=== PATIENT | female | born 1955 | race Caucasian/White ===

== ENCOUNTER 2016-11-04 20:30 | Emergency (ER) | payer OTHER ==
[~2016-11-04] VITALS: Ht 177.8 cm; Wt 88.0 kg
[2016-11-04 22:00] VITALS: O2SAT 94
[2016-11-04] MEDS ORDERED: PROCHLORPERAZINE 5 MG/ML 2 ML VIAL IV STA (22:10)
[2016-11-04] MEDS ORDERED: KETOROLAC TROMETHAMINE 30 MG/ML VIAL IV STA (22:10)
[2016-11-04] MEDS ORDERED: SODIUM CHLORIDE 0.9% 1000ML 1,000 ML IV ONE (22:10)
[2016-11-04] MEDS ORDERED: DiphenhydrAMINE HCL 50 MG/ML VIAL IV STA (22:10)
[2016-11-04] MEDS ORDERED: CIPR1TAB10 PO (22:24)
[2016-11-04] MEDS ORDERED: PRMVC PV (22:24)
[2016-11-04] MEDS ORDERED: NYSCR30 EXT (22:24)
[2016-11-04] MEDS ORDERED: LISI-461 PO (22:24)
[2016-11-04] MEDS ORDERED: MELO7.5T5 PO (22:24)
[2016-11-04] MEDS ORDERED: PYRI100T4 PO (22:24)
[2016-11-04] MEDS ORDERED: ACET-1256 PO (22:24)
[2016-11-04] MEDS ORDERED: CYAN10005 PO (22:24)
[2016-11-04 22:32] LABS: HEMATOCRIT 40.2 % (37-47); MEAN CELL VOLUME 86.6 fL (80-100); MEAN CORPUSCULAR HEMOGLOBIN 28.2 pg (25-34); MEAN CORPUSCULAR HGB CONC 32.6 g/dl (32-36); MEAN PLATELET VOLUME 9.7 fL (7.4-10.4); PLATELET COUNT 122 K/uL (130-400); RED BLOOD COUNT 4.64 M/uL (4.2-5.4); WHITE BLOOD COUNT 4.96 K/uL (4.8-10.8)
[2016-11-04 22:33] LABS: URINE APPEARANCE CLEAR (CLEAR); URINE COLOR DK YELLOW; URINE EPITHELIAL CELL AUTO >30 /lpf (0-5); URINE NITRITE NEG (NEG); URINE PH 5.5 (4.5-7.5); URINE SPECIFIC GRAVITY 1.019 (1.000-1.030); UROBILINOGEN POS (NEG); ZZUR CULT IF INDIC CLEAN CATCH NO
[2016-11-04 22:33] LABS: ALT/SGPT 60 U/L (12-78); BLOOD UREA NITROGEN 12 mg/dl (7-18); BUN/CREATININE RATIO 12.2 (10-20); CARBON DIOXIDE 24 mmol/L (21-32); CHLORIDE 105 mmol/L (98-107); CREATININE 0.95 mg/dl (0.60-1.20); GLUCOSE 104 mg/dl (70-99); POTASSIUM 3.3 mmol/L (3.5-5.1); SODIUM 139 mmol/L (136-145)
[2016-11-04 22:34] LABS: MANUAL MICROSCOPIC REQUIRED? NO; REVIEW REQ? NO
[2016-11-04 22:34] LABS: INR 1.1 (0.9-1.1); PARTIAL THROMBOPLASTIN RATIO 1.1; PROTHROMBIN TIME (PATIENT) 11.8 SECONDS (9.0-12.0)
[2016-11-04 22:35] LABS: URINE BILIRUBIN NEG (NEG)
[2016-11-04 22:36] LABS: ALB/GLOB RATIO 0.7 (0.9-2); ALKALINE PHOSPHATASE 150 U/L (45-117); AST/SGOT 60 U/L (15-37)
[2016-11-04 22:38] LABS: CALCIUM 8.2 mg/dl (8.5-10.1)
--- NOTE | 2016-11-04 22:50 | DIAGNOSTIC IMAGING REPORT ---
CHEST ONE VIEW PORTABLE HISTORY: Sepsis COMPARISON: None. FINDINGS: Linear densities at the left lung base favor scarring or atelectasis. The lungs are otherwise clear. The heart is top normal in size. No pleural effusions. No pneumothorax. IMPRESSION: No acute process. Electronically signed by: Triston Burroughs M.D. 11/04/2016 10:49 PM Dictated Date/Time: 11/04/2016 10:47 PM
--- NOTE | 2016-11-04 22:51 | DIAGNOSTIC IMAGING REPORT ---
LEFT FOOT 3 VIEWS HISTORY: Pt c/o left foot pain COMPARISON: None. FINDINGS: There is no fracture or dislocation. Soft tissues are unremarkable. No radiopaque foreign bodies. Plantar and posterior calcaneal spurs. IMPRESSION: No fractures. Electronically signed by: Triston Burroughs M.D. 11/04/2016 10:50 PM Dictated Date/Time: 11/04/2016 10:49 PM
[2016-11-04 22:54] LABS: BASO % 0.4 %; BASO ABS # 0.02 K/uL (0-0.2); COMPLETE YES; EOS % 0.2 %; IG% 0.2 %; LYMPH % 9.3 %; LYMPH ABS # 0.46 K/uL (1.2-3.4); NEUT % 83.9 %
[2016-11-04 23:00] VITALS: Ht 177.8 cm; Wt 88.0 kg
[2016-11-04 23:18] LABS: LYME DISEASE AB IGG NEG (NEG); LYME DISEASE AB IGM NEG (NEG)
--- NOTE | 2016-11-04 23:50 | EMERGENCY ROOM VISIT NOTE ---
History Report prepared by Jose: Phuong Garner Under the Supervision of: Dr. Nahid Dos Santos M.D. First contact with patient: 21:51 Chief Complaint: CHEST PAIN Stated Complaint: HEADACHE, DIZZY, FEVER, WEAK, CHEST PAINS Nursing Triage Summary: Patient was seen Thursday at [facility], was placed on abx for UTI. Patient family member states that she is not getting any better, she can't sleep at night. Patient has had a head since thursday non stop per patient. Patient also notes dizziness, fever, weakness and chest pain. Patient chest pain started thursday. Patient vomited bile at home earlier today. Notes nausea at this point. Patient had advil at 1300 today. History of Present Illness The patient is a 60 year old female who presents to the Emergency Room with complaints of a worsening illness for the past 4 days. [id number] states that the patient started complaining of a headache 4 days ago. The next day she was feeling worse. She was complaining of a fever, chills, nausea, weakness, and central chest pain. The patient went to the [facility] ER 2 days ago. She was diagnosed with a UTI and prescribed Cipro. They did not schedule any follow- up for the patient's chest pain. The patient states that she feels like the antibiotic is not helping. She is still experiencing a "pounding" headache, fevers, chills, weakness, nausea, vomiting, and chest pain. The patient notes that her headache is the "worst headache of my life." Her chest pain is not worsened with eating or exertion. It is not worsened with taking a deep breath. She has never seen a hearing aid assembly supervisor or had a stress test before. The patient has been taking ibuprofen for her pain. She rates her current pain as an 8/10 in severity. She denies neck pain, rash, and any recent tick bites. She does have a lot of animals at home. Source of History: patient, family ([id number]) Onset: 4 days ago Position: other (global) Symptom Intensity: 8/10 Quality: other (illness) Timing: worsening Modifying Factors (Relieving): ibuprofen Associated Symptoms: + fevers, + chills, + headache, + chest pain, + nausea , + vomiting, + weakness, No neck pain, No rash Review of Systems See HPI for pertinent positives & negatives. A total of 10 systems reviewed and were otherwise negative. Past Medical & Surgical Medical Problems: (1) Hypertension Family History Diabetes mellitus Social History Smoking Status: Never Smoker Current/Historical Medications Scheduled Ciprofloxacin Hcl (Cipro), 500 MG PO BID Cyanocobalamin (Vitamin B-12), 1,000 MCG PO DAILY Estrogens, Conjugated (Premarin), 1 DOSE PV 3XWK Lisinopril (Zestril), 10 MG PO DAILY Meloxicam (Mobic), 7.5 MG PO DAILY Nystatin (Nystatin Cream), 0 EXT UD Pyridoxine (Vitamin B6), 100 MG PO DAILY Scheduled PRN Acetaminophen (Tylenol), 500 MG PO Q4 PRN for Pain Allergies Coded Allergies: No Known Allergies (Unverified , 11/04/16) Physical Exam Vital Signs Date Time Temp Pulse Resp B/P (MAP) Pulse Ox O2 Delivery O2 Flow Rate FiO2 11/05/16 01:51 37.6 68 14 136/79 93 11/05/16 01:08 68 11/05/16 01:06 70 14 93 11/05/16 01:00 136/79 11/05/16 00:36 79 14 96 11/05/16 00:31 133/79 11/04/16 23:06 92 21 96 11/04/16 23:01 89 22 177/104 95 Room Air 11/04/16 22:31 82 20 94 11/04/16 22:00 94 Room Air 11/04/16 22:00 37.6 78 18 166/95 95 Room Air 11/04/16 21:57 78 11/04/16 21:17 98 Room Air 11/04/16 20:37 38.4 80 18 160/83 95 Room Air Physical Exam GENERAL: Patient is a healthy-appearing well-nourished female. HEAD: Normocephalic atraumatic, no evidence of meningitis or encephalitis on exam. EYES: Ocular movements intact pupils equal and react to light OROPHARYNX mucous membranes are moist no exudates present no erythema or edema present NECK: Supple no nuchal rigidity CHEST: Good equal expansion LUNGS: Clear and equal to auscultation CARDIAC: Normal S1 and S2 ABDOMEN: Soft nontender no guarding BACK: No CVA tenderness EXTREMITIES: No pain upon palpation normal muscle strength in all groups no clubbing cyanosis or edema NEURO: Patient is following commands and answering questions appropriately. Alert and oriented x3 Cranial Nerves 2-12 grossly intact Medical Decision & Procedures ER Provider Diagnostic Interpretation: LEFT FOOT 3 VIEWS HISTORY: Pt c/o left foot pain COMPARISON: None. FINDINGS: There is no fracture or dislocation. Soft tissues are unremarkable. No radiopaque foreign bodies. Plantar and posterior calcaneal spurs. IMPRESSION: No fractures. Electronically signed by: Triston Burroughs M.D. 11/04/2016 10:50 PM Dictated Date/Time: 11/04/2016 10:[address]AST CT DOSE: 537.48 mGy.cm HISTORY: Headache. Mental status change. Pt c/o headache TECHNIQUE: Multiaxial CT images of the head were performed without the use of intravenous contrast. Comparison: None. Findings: The paranasal sinuses and mastoid air cells are clear. The calvarium and skull base are intact. The ventricles and sulci are within normal limits. There is no mass, hematoma, midline shift, or acute infarct. Impression: No acute intracranial abnormality. Electronically signed by: Nigel Escobar M.D. 11/05/2016 7:10 AM Dictated Date/Time: 11/05/2016 7:09 AM Laboratory Results 11/04/16 22:00 Red Blood Count 4.64, Mean Corpuscular Volume 86.6, Mean Corpuscular Hemoglobin 28.2, Mean Corpuscular Hemoglobin Concent 32.6, Mean Platelet Volume 9.7, Neutrophils (%) (Auto) 83.9, Lymphocytes (%) (Auto) 9.3, Monocytes (%) (Auto) 6.0, Eosinophils (%) (Auto) 0.2, Basophils (%) (Auto) 0.4, Neutrophils # (Auto) 4.16, Lymphocytes # (Auto) 0.46, Monocytes # (Auto) 0.30, Eosinophils # (Auto) 0.01, Basophils # (Auto) 0.02 11/04/16 22:00 Test 11/04/16 21:55 11/04/16 22:00 11/04/16 22:03 11/05/16 00:25 Urine Color DK YELLOW Urine Appearance CLEAR (CLEAR) Urine pH 5.5 (4.5-7.5) Urine Specific Umpire 1.019 (1.000-1.030) Urine Protein 2+ (NEG) Urine Glucose (UA) NEG (NEG) Urine Ketones 3+ (NEG) Urine Occult Blood 1+ (NEG) Urine Nitrite NEG (NEG) Urine Bilirubin NEG (NEG) Urine Urobilinogen POS (NEG) Urine Leukocyte Esterase NEG (NEG) Urine WBC (Auto) 1-5 /hpf (0-5) Urine RBC (Auto) 0-4 /hpf (0-4) Urine Hyaline Casts (Auto) 1-5 /lpf (0-5) Urine Epithelial Cells (Auto) >30 /lpf (0-5) Urine Bacteria (Auto) NEG (NEG) White Blood Count 4.96 K/uL (4.8-10.8) Red Blood Count 4.64 M/uL (4.2-5.4) Hemoglobin 13.1 g/dL (12.0-16.0) Hematocrit 40.2 % (37-47) Mean Corpuscular Volume 86.6 fL (80-100) Mean Corpuscular Hemoglobin 28.2 pg (25-34) Mean Corpuscular Hemoglobin Concent 32.6 g/dl (32-36) Platelet Count 122 K/uL (130-400) Mean Platelet Volume 9.7 fL (7.4-10.4) Neutrophils (%) (Auto) 83.9 % Lymphocytes (%) (Auto) 9.3 % Monocytes (%) (Auto) 6.0 % Eosinophils (%) (Auto) 0.2 % Basophils (%) (Auto) 0.4 % Neutrophils # (Auto) 4.16 K/uL (1.4-6.5) Lymphocytes # (Auto) 0.46 K/uL (1.2-3.4) Monocytes # (Auto) 0.30 K/uL (0.11-0.59) Eosinophils # (Auto) 0.01 K/uL (0-0.5) Basophils # (Auto) 0.02 K/uL (0-0.2) RDW Standard Deviation 45.6 fL (36.4-46.3) RDW Coefficient of Variation 14.5 % (11.5-14.5) Immature Granulocyte % (Auto) 0.2 % Immature Granulocyte # (Auto) 0.01 K/uL (0.00-0.02) Echinocytes 1+ Prothrombin Time 11.8 SECONDS (9.0-12.0) Prothromb Time International Ratio 1.1 (0.9-1.1) Activated Partial Thromboplast Time 29.0 SECONDS (21.0-31.0) Partial Thromboplastin Ratio 1.1 Anion Gap 10.0 mmol/L (3-11) Est Creatinine Clear Calc Drug Dose 77.7 ml/min Estimated GFR () 76.5 Estimated GFR (Non- 66.0 BUN/Creatinine Ratio 12.2 (10-20) Calcium Level 8.2 mg/dl (8.5-10.1) Total Bilirubin 1.2 mg/dl (0.2-1) Aspartate Amino Transf (AST/SGOT) 60 U/L (15-37) Alanine Aminotransferase (ALT/SGPT) 60 U/L (12-78) Alkaline Phosphatase 150 U/L (45-117) Total Creatine Kinase 63 U/L (26-192) Creatine Kinase MB < 0.5 ng/ml (0.5-3.6) Creatine Kinase MB Ratio (0-3.0) Troponin I < 0.015 ng/ml (0-0.045) Total Protein 7.1 gm/dl (6.4-8.2) Albumin 3.0 gm/dl (3.4-5.0) Globulin 4.1 gm/dl (2.5-4.0) Albumin/Globulin Ratio 0.7 (0.9-2) Lyme Disease IgG Antibody NEG (NEG) Lyme Disease IgM Antibody NEG (NEG) Monoscreen NEG (NEG) Bedside Lactic Acid Venous 0.77 mmol/L (0.90-1.70) Influenza Type A (RT-PCR) Neg for Influ A (NEG) Influenza Type A Antigen Neg for Influ A (NEG) Influenza Type B Antigen Neg for Influ B (NEG) Influenza Type B (RT-PCR) Neg for Influ B (NEG) Labs reviewed by ED physician. Medications Administered Medications (Trade) Dose Ordered Sig/Cindy Route Start Time Stop Time Status Last Admin Dose Admin Sodium Chloride 1,000 ml @ 999 mls/hr Q1H1M ONCE IV 11/04/16 22:10 11/04/16 23:10 DC 11/04/16 22:40 999 MLS/HR Ketorolac Tromethamine (Toradol Inj) 30 mg NOW STAT IV 11/04/16 22:10 11/04/16 22:15 DC 11/04/16 22:41 30 MG Prochlorperazine Edisylate (Compazine Inj) 10 mg NOW STAT IV 11/04/16 22:10 11/04/16 22:15 DC 11/04/16 22:40 10 MG Diphenhydramine HCl (Benadryl Inj) 50 mg NOW STAT IV 11/04/16 22:10 11/04/16 22:15 DC 11/04/16 22:40 50 MG Albuterol (Ventolin Hfa Inhaler) 2 puffs NOW STAT INH 11/05/16 00:29 11/05/16 00:30 DC 11/05/16 01:07 2 PUFFS Albuterol Sulfate (Ventolin 0.5% 2.5MG/0.5ML Neb) 2.5 mg NOW STAT INH 11/05/16 00:29 11/05/16 00:30 DC 11/05/16 01:07 2.5 MG Dexamethasone Sodium Phosphate (Decadron Inj) 10 mg NOW STAT IV 11/05/16 00:30 11/05/16 00:31 DC 11/05/16 01:07 10 MG ECG Indication: chest pain Rate (beats per minute): 80 Rhythm: normal sinus Findings: no acute ischemic change, no ectopy ED Course 2150: Past medical records reviewed. The patient was evaluated in room B8. A complete history and physical examination was performed. 0: Benadryl 50 mg IV, Compazine 10 mg IV, Toradol 30 mg IV, NSS 1000 ml @ 999 mls/hr IV Medical Decision Differential diagnosis: Etiologies such as cardiac ischemia, aortic dissection, pulmonary embolism, pneumonia, pneumothorax, musculoskeletal, infections, pericarditis, myocarditis , esophageal rupture, gastrointestinal, as well as others were entertained. Medication Reconciliation: I attest that I have personally reviewed the patient' s current medication list. Blood Pressure Screening: Patient was found to have an elevated blood pressure and was referred to their primary care doctor for recheck and further treatment. This is a 60-year-old female who presents emergency department complaining of multiple complaints. Patient displays complaining of severe headache however has no evidence of meningitis or encephalitis on examination. She was sent for CAT scan of the head this did not show any evidence of sinusitis or acute process. In addition the patient does not have an elevation in her white blood count cell count. An IV was established, the patient given normal saline bolus , Toradol, Compazine, Benadryl. The patient does not have any elevation in her CK-MB or troponin fractions. She was given an albuterol breathing treatment in the emergency department with improvement in her symptoms. I do believe that the patient can be sent home on and inhaler. I stressed the need for follow-up with the patient's primary care physician. Patient and family were in agreement with the treatment plan. Impression Primary Impression: Headache Additional Impression: Bronchitis Scribe Attestation The scribe's documentation has been prepared under my direction and personally reviewed by me in its entirety. I confirm that the note above accurately reflects all work, treatment, procedures, and medical decision making performed by me. Departure Information Dispostion Home / Self-Care Referrals No Doctor, Assigned (PCP) Patient Instructions [facility] Problem Qualifiers Primary Impression: Headache Headache type: unspecified Headache chronicity pattern: acute headache Intractability: not intractable Qualified Codes: R51 - Headache
[2016-11-05] MEDS ORDERED: ALBUTEROL HFA 8 GM INHALER INH STA (00:29)
[2016-11-05] MEDS ORDERED: ALBUTEROL 0.5% NEB SOLN 2.5 MG/0.5 ML VIAL INH STA (00:29)
[2016-11-05] MEDS ORDERED: DEXAMETHASONE SOD INJ 10 MG/ML VIAL IV STA (00:30)
[2016-11-05 01:51] VITALS: BP 136/79; PULSE 68; TEMP 37.6; O2SAT 93
[2016-11-05 02:00] LABS: INFLUENZA A PCR Neg for Influ A (NEG); INFLUENZA B PCR Neg for Influ B (NEG)
--- NOTE | 2016-11-05 07:11 | DIAGNOSTIC IMAGING REPORT ---
HEAD CT NONCONTRAST CT DOSE: 537.48 mGy.cm HISTORY: Headache. Mental status change. Pt c/o headache TECHNIQUE: Multiaxial CT images of the head were performed without the use of intravenous contrast. Comparison: None. Findings: The paranasal sinuses and mastoid air cells are clear. The calvarium and skull base are intact. The ventricles and sulci are within normal limits. There is no mass, hematoma, midline shift, or acute infarct. Impression: No acute intracranial abnormality. Electronically signed by: Nigel Escobar M.D. 11/05/2016 7:10 AM Dictated Date/Time: 11/05/2016 7:09 AM
[2016-11-05 07:22] LABS: ECHINOCYTES 1+
--- NOTE | 2016-11-06 15:08 | Pharmacy Progress Note ---
ED Pharmacist Culture FollowUp Date of Service: Nov 06, 2016. Blood cultures obtained 11/04 now 1 of 2 with Gram positive cocci (preliminary result). Possible contaminant. Called patient, who reports significant improvement. Informed of positive blood culture result. Counseled that she does not need to return to the ER [facility]I 2nd improvement (supporting notion of contamination), but she should return [facility] for any worsening of condition or other concerns. Counseled on importance of follow-up with PCP. Patient acknowledged understanding. Will await final culture / sensitivities. ED staff to continue to follow (will be informed of additional results electronically).
[2016-11-10 23:35] LABS: EHRLICHIA CHAFF IGG AB <1:64 (<1:64); EHRLICHIA CHAFF IGM AB <1:20 (<1:20)
== END 2016-11-05 01:52 | disposition home or self-care (01) ==
LOC: C.EDB 20:32
DX: R51 Headache (principal); J40 Bronchitis, not specified as acute or chronic; I10 Essential (primary) hypertension; Z79.899 Other long term (current) drug therapy; Z83.3 Family history of diabetes mellitus